=== PATIENT | female | born 1950 | race Caucasian/White ===

== ENCOUNTER 2019-08-21 19:44 | Emergency (ER) | payer OTHER, MEDICARE ==
[2019-08-21] MEDS ORDERED: ONDANSETRON HCL INJ/PF 4 MG/2 ML SDV IV ONE (20:27)
--- NOTE | 2019-08-21 20:30 | ER Document Report ---
ED Medical Screen (RME) - General Chief Complaint: Constipation Stated Complaint: ABDOMINAL PAIN Time Seen by Provider: 08/21/19 20:13 TRAVEL OUTSIDE OF THE [place] IN LAST 30 DAYS: No - HPI Notes: 08/21/19 20:27 69-year-old female to the emergency department with complaints of nausea, vomiting, diarrhea, early satiation that is been ongoing for the past 2 weeks. She states initially it was constipation but she started to take MiraLAX and then started to have diarrhea. She states that every time she tries to eat something it comes back up. She states that she feels like she is very full even with the piece of toast. She denies any fevers or chills. She denies any shortness of breath. 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 She states that she was seen at the ER and told this and then given several different options because she was told she was very sick. She states that 1 of the options was to go on hospice. She states that she was put on hospice and told that she would probably live for another 2 weeks. She had been on hospice since December 2018 until she moved here. She was transitioned to hospice in the [facility] but then released when the hospice physician repeated x-rays and did not find a mass. Patient and her family who are with her states she was never diagnosed with cancer or formally evaluated for this mass. She is a former smoker. I performed a brief medical screening exam on the patient determined that she will need further management by me inside provider. I will order lab work and imaging studies to help expedite her care. - Related Data Allergies/Adverse Reactions: tetanus toxoid, adsorbed Allergy (Verified 08/21/19 20:22) Home Medications: chantix, lorazapam, duoneb, fenofibrate, celax, lasix, hydrocodone, levothyroxine, metoprolol, zofran, atorvastatin, Physical Exam - Vital signs Vitals: Temp Pulse Resp BP Pulse Ox 97.4 F 88 20 150/72 H 100 08/21/19 19:50 08/21/19 19:50 08/21/19 19:50 08/21/19 19:50 08/21/19 19:50 Course - Vital Signs Vital signs: Temp Pulse Resp BP Pulse Ox 97.4 F 88 20 150/72 H 100 08/21/19 19:50 08/21/19 19:50 08/21/19 19:50 08/21/19 19:50 08/21/19 19:50
[2019-08-21 21:09] LABS: ABSOLUTE EOSINOPHILS # (AUTO) 0.1 10^3/uL (0.0-0.6); ABSOLUTE LYMPHOCYTES (AUTO) 1.4 10^3/uL (0.5-4.7); ABSOLUTE NEUT (AUTO) 5.8 10^3/uL (1.7-8.2); BASOPHILS % (AUTO) 0.2 % (0-2); EOSINOPHILS % (AUTO) 1.4 % (0-6); HEMATOCRIT 40.4 % (36.0-47.0); HEMOGLOBIN 14.1 g/dL (12.0-15.5); LYMPHOCYTES % (AUTO) 16.7 % (13-45); MEAN CORPUSCULAR HEMOGLOBIN 32.6 pg (27.0-33.4); MEAN CORPUSCULAR HGB CONC 34.9 g/dL (32.0-36.0); MEAN CORPUSCULAR VOLUME 93 fl (80-97); MONOCYTES % (AUTO) 11.6 % (3-13); PLATELET COUNT 287 10^3/uL (150-450); RED BLOOD COUNT 4.33 10^6/uL (3.72-5.28); RED CELL DISTRIBUTION WIDTH 12.9 % (11.5-14.0); SEGMENTED NEUTROPHILS % (AUTO) 70.1 % (42-78); TOTAL CELLS COUNTED % (AUTO) 100 %; WHITE BLOOD COUNT 8.3 10^3/uL (4.0-10.5)
[2019-08-21 21:13] LABS: APPEARANCE,URINE SLIGHTLY-CLOUDY; BILIRUBIN,URINE NEGATIVE (NEGATIVE); COLOR,URINE YELLOW; GLUCOSE, URINE NEGATIVE (NEGATIVE); KETONES,URINE TRACE mg/dL (NEGATIVE); LEUKOCYTE ESTERASE,URINE MODERATE (NEGATIVE); NITRITE,URINE NEGATIVE (NEGATIVE); PROTEIN,URINE 30 mg/dL (NEGATIVE); URINE SPECIFIC GRAVITY 1.016; UROBILINOGEN,URINE NEGATIVE mg/dL (<2.0)
[2019-08-21 21:29] LABS: ALBUMIN 4.7 g/dL (3.5-5.0); ALKALINE PHOSPHATASE 63 U/L (38-126); ANION GAP 13 (5-19); ASPARTATE AMINO TRANSFERASE 32 U/L (14-36); BILIRUBIN,DIRECT 0.3 mg/dL (0.0-0.4); BILIRUBIN,TOTAL 0.6 mg/dL (0.2-1.3); BLOOD UREA NITROGEN 24 mg/dL (7-20); CALCIUM 10.1 mg/dL (8.4-10.2); CARBON DIOXIDE 31 mmol/L (22-30); CHLORIDE 92 mmol/L (98-107); GLUCOSE 101 mg/dL (75-110); POTASSIUM 4.7 mmol/L (3.6-5.0); TOTAL PROTEIN 8.1 g/dL (6.3-8.2)
--- NOTE | 2019-08-21 22:46 | RADIOLOGY REPORT (SQ) ---
CT ABDOMEN PELVIS WITH IV CONTRAST EXAM DATE: 08/21/2019 8:25 PM EDITOR PUBLICATIONS HISTORY: Abdominal pain. COMPARISON: None. TECHNIQUE: CT scan of the abdomen and pelvis was performed with IV contrast. This exam was performed according to our departmental dose-optimization program, which includes automated exposure control, adjustment of the mA and/or kV according to patient size and/or use of iterative reconstruction technique. FINDINGS: The lung bases are clear. No pleural or pericardial effusions. The liver, spleen, pancreas, gallbladder, adrenal glands, and kidneys are unremarkable. No hydronephrosis or urinary stones are seen. There has been a prior hysterectomy. No small bowel obstruction. The appendix is normal. No evidence of acute diverticulitis. No adenopathy, free fluid, or free air is identified. The aorta is normal caliber and contains atherosclerotic calcifications. Degenerative disc disease at L2-L3. IMPRESSION: No acute abdominal or pelvic findings.
--- NOTE | 2019-08-21 23:02 | RADIOLOGY REPORT (SQ) ---
EXAM DESCRIPTION: XR CHEST 2 VIEWS COMPLETED DATE/TME: 08/21/2019 20:26 CLINICAL HISTORY: 69 years, Female, hx of lung mass COMPARISON: None. NUMBER OF VIEWS: Two TECHNIQUE: Frontal and lateral radiographs LIMITATIONS: None. FINDINGS: Cardiac and mediastinal contours are normal. Lungs are clear. No pleural effusion or pneumothorax. IMPRESSION: No acute disease. copyright 2010 [employer]- All Rights Reserved
[2019-08-21] MEDS ORDERED: CEPHALEXIN 500 MG CAPSULE PO ONE (23:28)
[2019-08-21] MEDS ORDERED: NORMAL SALINE 1000 ML 1,000 ML IV ONE (23:28)
--- NOTE | 2019-08-21 23:31 | ER Document Report ---
ED GI/ - General Chief Complaint: Constipation Stated Complaint: ABDOMINAL PAIN Time Seen by Provider: 08/21/19 20:13 Primary Care Provider: ABDI RODRIGUEZ MD [Primary Care Provider] - Follow up as needed Notes: Patient is a 69-year-old female that comes emergency department for chief complaint of vomiting, loose bowel movements, and generalized abdominal pain for the past 2 weeks or so. She states that initially she was constipated, she took MiraLAX, started having diarrhea, then shortly after that she developed abdominal cramping that was intermittent. She states she last vomited 2 days ago. She was able to eat toast today and keep it down but she states when she did eat it she felt like her "belly was burning". She denies fever. She also reports some urinary hesitancy. Denies chest pain, shortness of breath, or any other complaints. She denies any abdominal surgeries. She also states that she was diagnosed in December 2018 in [place] with lung cancer, however she states she was seen in a follow-up and told that she did not have lung cancer. She is a former smoker, on Chantix. Past medical history also includes hypertension, hypothyroidism, hyperlipidemia, COPD, CAD/OR, anxiety. TRAVEL OUTSIDE OF THE [place] IN LAST 30 DAYS: No - Related Data Allergies/Adverse Reactions: tetanus toxoid, adsorbed Allergy (Verified 08/21/19 20:22) Home Medications: chantix, lorazapam, duoneb, fenofibrate, celax, lasix, hydrocodone, levothyroxine, metoprolol, zofran, atorvastatin, Past Medical History - General Information source: Patient - Social History Smoking Status: Former Smoker Frequency of alcohol use: None Drug Abuse: None Lives with: Family Family History: Reviewed & Not Pertinent Patient has suicidal ideation: No Patient has homicidal ideation: No - Past Medical History Cardiac Medical History: Reports: Hx Heart Attack, Hx Hypercholesterolemia Pulmonary Medical History: Reports: Hx COPD Endocrine Medical History: Reports: Hx Hypothyroidism - Immunizations Immunizations up to date: Yes Hx Diphtheria, Pertussis, Tetanus Vaccination: Yes Review of Systems - Review of Systems Constitutional: No symptoms reported EENT: No symptoms reported Cardiovascular: No symptoms reported Respiratory: No symptoms reported Gastrointestinal: See HPI Genitourinary: No symptoms reported Female Genitourinary: No symptoms reported Musculoskeletal: No symptoms reported Skin: No symptoms reported Hematologic/Lymphatic: No symptoms reported Neurological/Psychological: No symptoms reported Physical Exam - Vital signs Vitals: Temp Pulse Resp BP Pulse Ox 97.4 F 88 20 150/72 H 100 08/21/19 19:50 08/21/19 19:50 08/21/19 19:50 08/21/19 19:50 08/21/19 19:50 - Notes Notes: GENERAL: Alert, interacts well. No acute distress. HEAD: Normocephalic, atraumatic. EYES: Pupils equal, round, and reactive to light. Extraocular movements intact. ENT: Oral mucosa moist, tongue midline. Oropharynx unremarkable. Airway patent. LUNGS: Clear to auscultation bilaterally, no wheezes, rales, or rhonchi. No respiratory distress. HEART: Regular rate and rhythm. No murmur ABDOMEN: Very mild tenderness of the upper abdomen, lower abdomen non-tender completely, bowel sounds present, no guarding or rigidity GENITOURINARY: Deferred EXTREMITIES: Moves all 4 extremities spontaneously. No edema, normal radial and dorsalis pedis pulses bilaterally. No cyanosis. BACK: no cervical, thoracic, lumbar midline tenderness. No saddle anesthesia, normal distal neurovascular exam. Moves all extremities in full range of motion. NEUROLOGICAL: Alert and oriented x3. Normal speech. Cranial nerves II through XII grossly intact. PSYCH: Normal affect, normal mood. SKIN: Warm, dry, normal turgor. No rashes or lesions noted. Course - Re-evaluation Re-evalutation: Chest x-ray negative. CAT scan is negative for any concerning acute findings. Abdomen is soft and benign except for some mild general upper abdominal tenderness. Patient is very talkative, alert, well-appearing. She tolerates p.o. without any difficulty. CBC nonspecific, chemistry shows creatinine of 1.62 but I do not have comparison. Patient was given IV fluids. Urinalysis does suggest an infection. I discussed results with patient at length. She asks for a copy of her imaging reports, she is very satisfied with the lack of visualized abnormality at this time. Because of her burning in the upper abdomen with epigastric tenderness I suspect a reflux component/gastritis, discussed this and treatment for this. Patient also be treated for UTI. Discussed close follow-up and return precautions with patient and family. They state understanding and agreement. Stable at time of discharge. - Vital Signs Vital signs: Temp Pulse Resp BP Pulse Ox 97.4 F 81 16 156/78 H 100 08/22/19 02:07 08/22/19 02:07 08/22/19 02:07 08/22/19 02:07 08/22/19 02:07 - Laboratory Result Diagrams: 08/21/19 20:58 08/21/19 20:58 Laboratory results interpreted by me: 08/21/19 08/21/19 20:58 20:58 Sodium 135.5 L Chloride 92 L Carbon Dioxide 31 H BUN 24 H Creatinine 1.62 H Est GFR ( Amer) 38 L Est GFR (MDRD) Non-Af 32 L Urine Protein 30 H Urine Ketones TRACE H Urine Blood MODERATE H Ur Leukocyte Esterase MODERATE H Urine Ascorbic Acid 20 H Discharge - Discharge Clinical Impression: Nausea Abdominal pain Qualifiers: Abdominal location: generalized Qualified Code(s): R10.84 - Generalized abdominal pain Condition: Stable Disposition: HOME, SELF-CARE Additional Instructions: Your work-up shows dehydration, you have begun rehydration, drink plenty of fluids at home. Follow close with primary care and have your kidney function rechecked. Your urine also indicates a developing infection, take Keflex antibiotics as prescribed, take Zofran if needed for nausea. Your imaging of the chest, abdomen, pelvis do not show any concerning findings at this time. Because of your symptoms I recommend you take the omeprazole as prescribed. Consider [id number] Pepcid or similar medication as well. Start with bland diet and slowly progress. Avoid anti-inflammatories, caffeine, alcohol, smoking. Return if you worsen including vomiting, fever, severe worsening pain, or any other concerning symptoms. Prescriptions: Cephalexin Monohydrate [Keflex 500 mg Capsule] 500 mg PO BID 7 Days #14 capsule Omeprazole 40 mg PO DAILY 14 Days #14 capsule. Ondansetron [Zofran Odt 4 mg Tablet] 1 tab PO Q4H PRN #12 tab.rapdis PRN Reason: For Nausea/Vomiting Referrals: ABDI RODRIGUEZ MD [Primary Care Provider] - Follow up as needed
[2019-08-22] MEDS ORDERED: ONDANSETRON ODT 4 MG TAB (6 TAB/ER DISP) PO PRN (01:32)
[2019-08-22 02:12] VITALS: BP 156/78
== END 2019-08-22 02:03 | disposition home or self-care (01) ==
LOC: ER 19:44
DX: R10.84 Generalized abdominal pain (principal); R11.2 Nausea with vomiting, unspecified; K59.00 Constipation, unspecified; R10.2 Pelvic and perineal pain; R19.7 Diarrhea, unspecified; R10.9 Unspecified abdominal pain; R39.11 Hesitancy of micturition; Z88.8 Allergy status to other drugs, medicaments and biological substances; Z79.899 Other long term (current) drug therapy; Z87.891 Personal history of nicotine dependence; I10 Essential (primary) hypertension; J44.9 Chronic obstructive pulmonary disease, unspecified; I25.10 Atherosclerotic heart disease of native coronary artery without angina pectoris; I25.2 Old myocardial infarction
CPT/HCPCS: 99284; 96361; 96374; 36415; 87086; 83690; 85025; 80053; 81001; 71046; 74177; J2405; J7030

== ENCOUNTER 2019-09-07 10:15 | Day surgery (SDC) | payer MEDICARE, OTHER ==
[2019-09-07] MEDS ORDERED: ALBUTEROL SULFATE 0.083% NEB 2.5 MG/3 ML AMPUL NEB ONE (11:23)
[2019-09-07] MEDS ORDERED: RINGERS SOLUTION,LACTATED 500 ML IV ONE (12:00)
[2019-09-07] MEDS ORDERED: PROPOFOL INJ 200 MG/20 ML VIAL IV ONE (12:18)
--- NOTE | 2019-09-07 14:29 | Operative Report ---
Operative Report DATE OF SURGERY: 09/07/19 Operative Report: The risk, benefits and alternatives of the procedure including the risk of bleeding, perforation requiring surgery have been explained to the patient in detail and informed consent has been obtained. Patient was placed in a left, lateral decubital position. Timeout was called. Propofol medication is administered. Rectal examination is done which did not reveal any masses, tears or fissures. An Olympus videoscope was introduced into the patient's rectum. Scope was then carefully advanced all the way to the cecum. Cecum was identified by the usual anatomical landmarks of the ileocecal valve as well as appendiceal office. Photodocumentation is obtained. The scope was then sequentially pulled back via the various segments of the colon including the ascending colon, hepatic flexure, transverse colon, splenic flexure, descending colon and finally into the rectosigmoid portions of the colon. Retroflexion maneuvers performed. The risks benefits and alternatives of the procedure explained to the patient in detail and informed consent is obtained.A GIF Olympus video scope was inserted into the patient's mouth and hypopharynx, the esophagus is identified intubated and insufflated, the scope was then advanced through the esophagus stomach and duodenum ,retroflexion maneuver is done, the esophagus stomach and first and second portions of the duodenum examined PREOPERATIVE DIAGNOSIS: Nausea vomiting, change of bowel habits POSTOPERATIVE DIAGNOSIS: Right colon Inflammation status post biopsy. Internal hemorrhoids. Gastritis status post biopsy. Duodenitis hiatal hernia OPERATION: Colonoscopy with biopsy. EGD with biopsy SURGEON: SANDOR GODOY ANESTHESIA: LMAC TISSUE REMOVED OR ALTERED: as noted COMPLICATIONS: none ESTIMATED BLOOD LOSS: none INTRAOPERATIVE FINDINGS: as noted above PROCEDURE: Patient tolerated the procedure well. No immediate postprocedure complications are noted. Patient is discharged in good condition. Discharge date 09/07/2019. Discharge diet: Regular. Discharge activity: Regular. 2 to 3-week follow-up to discuss findings. Patient is instructed to call the office or proceed to the emergency room should there be any further problems or questions. Can consider 10-year surveillance colonoscopy.
[2019-09-07 15:11] VITALS: BP 141/49
--- NOTE | 2019-09-07 18:48 | EKG REPORT ---
SEVERITY:- BORDERLINE ECG - SINUS RHYTHM BORDERLINE T ABNORMALITIES, ANT-LAT LEADS BORDERLINE PROLONGED QT INTERVAL : Confirmed by: Luz Marina Cheng 07-Sep-2019 18:47:42
== END 2019-09-07 14:30 | disposition home or self-care (01) ==
LOC: OROUT 10:15
PROVIDERS: ATTEND Internal Medicine Gastroenterology
DX: K52.9 Noninfective gastroenteritis and colitis, unspecified (principal); K64.8 Other hemorrhoids; K29.50 Unspecified chronic gastritis without bleeding; K29.80 Duodenitis without bleeding; K44.9 Diaphragmatic hernia without obstruction or gangrene; J44.9 Chronic obstructive pulmonary disease, unspecified; Z87.891 Personal history of nicotine dependence; I25.2 Old myocardial infarction; I20.9 Angina pectoris, unspecified; Z88.7 Allergy status to serum and vaccine
CPT/HCPCS: 43239; 45380; 88305 ×2; 93005; 93010; 00813; J2704; A9270; 813

== ENCOUNTER → 2019-10-04 | Outpatient (CLI) | payer MEDICARE, OTHER ==
--- NOTE | 2019-10-04 09:55 | RADIOLOGY REPORT (SQ) ---
EXAM DESCRIPTION: U/S ABDOMEN LTD W/DOPPLER COMPLETED DATE/TIME: 10/04/2019 9:39 am REASON FOR STUDY: RUQ PAIN (R10.11) R10.11 RIGHT UPPER QUADRANT PAIN COMPARISON: None. TECHNIQUE: Dynamic and static grayscale images acquired of the abdomen and recorded on PACS. Additio nal selected color Doppler and spectral images recorded. LIMITATIONS: None. FINDINGS: PANCREAS: No masses. Visualized pancreatic duct normal caliber. LIVER: No masses. Echotexture normal. LIVER VASCULATURE: Normal directional flow of the main portal vein and hepatic veins. GALLBLADDER: No stones. Normal wall thickness. No pericholecystic fluid. ULTRASOUND-DETECTED MACDONALD'S SIGN: Negative. INTRAHEPATIC DUCTS AND COMMON DUCT: CBD and intrahepatic ducts normal caliber. No filling defects. AORTA: No aneurysm. RIGHT KIDNEY: Normal size. Normal echogenicity. No solid or suspicious masses. No hydronephrosis. No calcifications. PERITONEAL AND RIGHT PLEURAL SPACE: No ascites or effusions. OTHER: No other significant findings. IMPRESSION: NORMAL RIGHT UPPER QUADRANT ULTRASOUND. TECHNICAL DOCUMENTATION: JOB ID: [id number] [employer]- All Rights Reserved Reading location - IP/workstation name: [email or web address]
--- NOTE | 2019-10-04 11:10 | RADIOLOGY REPORT (SQ) ---
EXAM DESCRIPTION: NM HIDA SCAN WITH CCK COMPLETED DATE/TIME: 10/04/2019 10:57 am REASON FOR STUDY: RUQ PAIN (R10.11) R10.11 RIGHT UPPER QUADRANT PAIN COMPARISON: Ultrasound done earlier the same day, CT abdomen pelvis dated 08/21/2019 RADIONUCLIDE AND DOSE: DOSAGE RADIONUCLIDE: 5.37 millicuries Tc99m Mebrofenin. DOSAGE CCK: 1.1 micrograms. DOSAGE MORPHINE: None required. The route of agent administration: Intravenous TECHNIQUE: Serial imaging right upper quadrant up to 60 minutes following injection of radionuclide. CCK injected after gallbladder visualized. LIMITATIONS: None. FINDINGS: LIVER: Normal visualization without areas of photopenia. INTRAHEPATIC BILE DUCTS: Normal size and no delay in visualization. COMMON BILE DUCT: Normal without dilatation. GALLBLADDER: Normal visualization. Calculated ejection fraction of 95%. Normal range is greater th an 35%. PHYSICAL RESPONSE: Patients presenting complaint was reproduced. OTHER: No other significant finding. IMPRESSION: No evidence of cystic or common bile duct obstruction. Normal gallbladder ejection frac tion. Despite this the patient reports that symptoms were reproduced with CCK administration. TECHNICAL DOCUMENTATION: JOB ID: [id number] 2010 [employer]- All Rights Reserved Reading location - IP/workstation name: [email or web address]
== END ==
LOC: RAD 07:12
PROVIDERS: ATTEND Internal Medicine Gastroenterology
DX: R10.11 Right upper quadrant pain (principal)
CPT/HCPCS: 76705; 93976; 78227; J2805; A9537; Q9969